=== PATIENT | male | born 1970 | race Caucasian/White ===

== ENCOUNTER 2024-04-27 18:14 | Inpatient (IN) | payer BC ==
[2024-04-27 19:17] LABS: #Basophils 0.04 10x3/uL (0.0-0.2); %Basophils 0.4 % (0.0-1.0); %Eosinophils 2.2 % (0.0-10.0); %Lymphocytes 19.3 % (21.0-51.0); %Neutrophils 72.7 % (42.0-75.0); Hematocrit 43.5 % (42.0-52.0); Hemoglobin 15.8 g/dL (14.0-18.0); Mean Corpuscular HGB CONC 36.3 g/dL (32.0-36.0); Mean Corpuscular Hemoglobin 30.4 pg (27.0-31.0); Mean Corpuscular Volume 83.8 fL (78.0-98.0); Mean Platelet Volume 9.3 fL (7.4-10.4); Platelet Count 264 10x3/uL (130-400); RBC Distribution Width 11.9 % (11.5-14.5); Red Blood Cell (RBC) Count 5.19 mill/uL (4.70-6.10)
[2024-04-27] MEDS ORDERED: Aspirin Chewable 81 MG TAB ONE (19:21)
[2024-04-27 19:40] LABS: ALT (SGPT) 23 U/L (8-55); AST (SGOT) 21 U/L (5-34); Albumin 4.3 g/dL (3.5-5.0); Alkaline Phosphatase 53 U/L (40-110); Anion Gap 15 mmol/L (10-20); BUN (Urea Nitrogen) 20 mg/dL (8.4-25.7); Bilirubin, Total 0.5 mg/dL (0.2-1.2); Calc. Creatinine Clearance 0 mL/min (70-130); Calcium 9.7 mg/dL (7.8-10.44); Carbon Dioxide 21 mmol/L (22-29); Chloride 104 mmol/L (98-107); Estimated GFR 90; Globulin 3.9 g/dL (2.4-3.5); Glucose 127 mg/dL (70-105); Potassium 4.4 mmol/L (3.5-5.1); Protein, Total 8.2 g/dL (6.0-8.3); Sodium 136 mmol/L (136-145)
[2024-04-27 19:41] LABS: Troponin I 0.073 ng/mL (< 0.028)
[2024-04-27] MEDS ORDERED: Nitroglycerin 2% Ointment 1 INCH/1 GM Packet ONE ×2 (19:55→19:58)
[2024-04-27] MEDS ORDERED: Acetaminophen 650 MG Suppository PR PRN (20:52)
[2024-04-27] MEDS ORDERED: Acetaminophen 325 MG TAB PO PRN (20:52)
[2024-04-27] MEDS ORDERED: Ondansetron PF 4 MG/2 ML Vial IVP PRN (20:52)
[2024-04-27] MEDS ORDERED: Nitroglycerin 0.4 MG TAB (25 Tab Bottle) SL PRN (20:52)
[2024-04-27] MEDS ORDERED: Ondansetron ODT 4 MG TAB PO PRN (20:52)
[2024-04-27] MEDS: Atorvastatin Calcium 40 MG TAB PO SCH (21:45)
[2024-04-27] MEDS ORDERED: Atorvastatin Calcium 40 MG TAB ONE (21:46)
[2024-04-27 21:53] VITALS: BMI 27.3
[2024-04-27 22:43] LABS: Troponin I 0.762 ng/mL (< 0.028)
[2024-04-28 05:24] LABS: #Basophils Less than 0.03 10x3/uL (0.0-0.2); %Basophils 0.2 % (0.0-1.0); %Eosinophils 2.5 % (0.0-10.0); %Lymphocytes 29.3 % (21.0-51.0); %Monocytes 6.6 % (0.0-10.0); %Neutrophils 60.9 % (42.0-75.0); Hematocrit 40.8 % (42.0-52.0); Hemoglobin 14.4 g/dL (14.0-18.0); Mean Corpuscular HGB CONC 35.3 g/dL (32.0-36.0); Mean Corpuscular Hemoglobin 29.8 pg (27.0-31.0); Mean Corpuscular Volume 84.3 fL (78.0-98.0); Mean Platelet Volume 9.7 fL (7.4-10.4); Platelet Count 254 10x3/uL (130-400); RBC Distribution Width 12.1 % (11.5-14.5); Red Blood Cell (RBC) Count 4.84 mill/uL (4.70-6.10)
[2024-04-28 05:42] LABS: Hemoglobin A1c 5.1 % (4.0-6.0)
[2024-04-28 05:59] LABS: Anion Gap 14 mmol/L (10-20); BUN (Urea Nitrogen) 16 mg/dL (8.4-25.7); Calc. Creatinine Clearance 112 mL/min (70-130); Calcium 9.2 mg/dL (7.8-10.44); Carbon Dioxide 22 mmol/L (22-29); Cardiac Risk 5.7 (Less than 4.5); Chloride 106 mmol/L (98-107); Cholesterol 234 mg/dl (< 200 Desired); Estimated GFR 103; Glucose 96 mg/dL (70-105); HDL Cholesterol 41 mg/dL (>60 Neg Risk); LDL Cholesterol, Calculated 177 mg/dL; Potassium 3.9 mmol/L (3.5-5.1); Sodium 138 mmol/L (136-145); Triglycerides 78 mg/dL (Less than 150)
[2024-04-28 06:07] LABS: Troponin I 3.512 ng/mL (< 0.028)
[2024-04-28] MEDS ORDERED: Aspirin Chewable 81 MG TAB ONE (08:29)
[2024-04-28] MEDS ORDERED: Enoxaparin 80 MG (0.8 mL) SYRINGE ONE (08:29)
[2024-04-28 08:33] LABS: Troponin I 3.797 ng/mL (< 0.028)
[2024-04-28] MEDS ORDERED: Enoxaparin 40 MG (0.4 mL) SYRINGE SC SCH (09:00)
[2024-04-28] MEDS ORDERED: Communication Order-Pharmacy FS SCH (10:15)
[2024-04-28] MEDS ORDERED: fentaNYL 50 mcg/mL 1 mL Vial ONE (10:36)
[2024-04-28] MEDS ORDERED: Nitroglycerin 50 MG/250 ML BOT 250 ML ONE (10:36)
[2024-04-28] MEDS ORDERED: Heparin 10,000 UNITS/ 10 ML VIAL ONE (10:36)
[2024-04-28] MEDS ORDERED: Verapamil 5 MG/2 ML VIAL ONE (10:36)
[2024-04-28] MEDS ORDERED: Midazolam HCl 2 mg/2 ml Vial ONE (10:36)
[2024-04-28] MEDS ORDERED: Adenosine 6 mg (2 mL) VIAL ONE (10:36)
[2024-04-28] MEDS ORDERED: Sodium Chloride 0.9% 200 ML IV PRN (11:55)
[2024-04-28] MEDS ORDERED: Acetaminophen/Codeine 30-300mg Tablet PO PRN ×2 (11:55)
[2024-04-28] MEDS ORDERED: Nitroglycerin 0.4 MG TAB (25 Tab Bottle) SL PRN (11:55)
[2024-04-28] MEDS: Enoxaparin 80 MG (0.8 mL) SYRINGE SC SCH (15:35)
[2024-04-28] MEDS: Aspirin Chewable 81 MG TAB PO SCH (15:35)
[2024-04-28] MEDS: Sodium Chloride 0.9% 1,000 ML IV SCH (15:38)
[2024-04-28 15:56] LABS: Troponin I 3.606 ng/mL (< 0.028)
[2024-04-28 17:50] LABS: Critical Call Chem Troponin I RESULT DECREASING; Troponin I 2.975 ng/mL (< 0.028)
[2024-04-28] MEDS: Colchicine 0.6 MG TAB PO SCH (22:11)
[2024-04-28] MEDS: Ibuprofen 600 MG TAB PO SCH (22:11)
[2024-04-29 01:26] LABS: Troponin I 3.364 ng/mL (< 0.028)
[2024-04-29 08:40] LABS: Critical Call Chem Troponin I RESULT DECREASING; Troponin I 2.311 ng/mL (< 0.028)
[2024-04-29] MEDS: Pantoprazole DR 40 MG TAB PO SCH (09:41)
[2024-04-29] MEDS: Colchicine 0.6 MG TAB PO SCH (09:41)
[2024-04-29 13:30] VITALS: BP 138/80; TEMP 98.1
[2024-04-30] MEDS ORDERED: FLU (Fluarix Triv) TS24-25(6MOS UP)/PF 45 MCG/0.5 ML Syringe IM ONE (09:00)
== END 2024-04-29 15:15 | disposition home or self-care (01) | DRG 287 ==
LOC: ERS 18:14 → SUATTDRO 18:14 → ERHOLD 20:52 → OBSVTOIN 04-28 08:30 → 2NO 04-28 15:16
PROVIDERS: ADMIT Family Medicine; ATTEND Family Medicine
PROC: 4A023N7 Measurement of Cardiac Sampling and Pressure, Left Heart, Percutaneous Approach (ICD-10-PCS; principal; 2024-04-28)
PROC: B2101ZZ Fluoroscopy of Single Coronary Artery using Low Osmolar Contrast (ICD-10-PCS; 2024-04-28)
PROC: B2151ZZ Fluoroscopy of Left Heart using Low Osmolar Contrast (ICD-10-PCS; 2024-04-28)
DX: I30.9 Acute pericarditis, unspecified (principal); B97.89 Other viral agents as the cause of diseases classified elsewhere; Z79.899 Other long term (current) drug therapy; Z91.011 Allergy to milk products; Z91.018 Allergy to other foods; E78.00 Pure hypercholesterolemia, unspecified; Z90.49 Acquired absence of other specified parts of digestive tract
CPT/HCPCS: 36415; 71045; 80048; 80053; 80061; 83036; 84443; 84484; 85025; 86141; 87040; 87077; 87149; 93005; 93306; 93458; 99152; C1769; C1894; J0153; J1644; J1650; J2250; J3010

== ENCOUNTER 2024-05-12 07:17 | Inpatient (IN) | payer BC ==
[2024-05-12 07:40] LABS: #Basophils Less than 0.03 10x3/uL (0.0-0.2); #Eosinophils Less than 0.03 10x3/uL (0.0-0.7); %Basophils 0.2 % (0.0-1.0); %Eosinophils 0.1 % (0.0-10.0); %Lymphocytes 10.1 % (21.0-51.0); %Monocytes 2.9 % (0.0-10.0); %Neutrophils 86.3 % (42.0-75.0); Hematocrit 44.7 % (42.0-52.0); Hemoglobin 15.7 g/dL (14.0-18.0); Mean Corpuscular HGB CONC 35.1 g/dL (32.0-36.0); Mean Corpuscular Hemoglobin 29.9 pg (27.0-31.0); Mean Corpuscular Volume 85.1 fL (78.0-98.0); Mean Platelet Volume 9.5 fL (7.4-10.4); Platelet Count 289 10x3/uL (130-400); RBC Distribution Width 11.8 % (11.5-14.5); Red Blood Cell (RBC) Count 5.25 mill/uL (4.70-6.10)
[2024-05-12] MEDS ORDERED: Aspirin Chewable 81 MG TAB ONE (07:42)
[2024-05-12] MEDS ORDERED: Nitroglycerin 0.4 MG TAB 1 EACH ONE (07:52)
[2024-05-12 08:20] LABS: ALT (SGPT) 22 U/L (8-55); AST (SGOT) 24 U/L (5-34); Albumin 4.3 g/dL (3.5-5.0); Alkaline Phosphatase 58 U/L (40-110); Anion Gap 15 mmol/L (10-20); BUN (Urea Nitrogen) 16 mg/dL (8.4-25.7); Bilirubin, Total 0.6 mg/dL (0.2-1.2); Calc. Creatinine Clearance 0 mL/min (70-130); Calcium 10.9 mg/dL (7.8-10.44); Carbon Dioxide 25 mmol/L (22-29); Chloride 99 mmol/L (98-107); Estimated GFR 102; Globulin 3.8 g/dL (2.4-3.5); Glucose 117 mg/dL (70-105); Potassium 3.9 mmol/L (3.5-5.1); Protein, Total 8.1 g/dL (6.0-8.3); Sodium 135 mmol/L (136-145)
[2024-05-12 08:30] LABS: Troponin I 1.761 ng/mL (< 0.028)
[2024-05-12] MEDS ORDERED: Morphine 2 MG/ML VIAL ONE (09:07)
[2024-05-12] MEDS ORDERED: Ketorolac Tromethamine 30 MG (1 mL) VIAL ONE (12:30)
[2024-05-12] MEDS ORDERED: Ondansetron PF 4 MG/2 ML Vial IVP PRN (13:25)
[2024-05-12] MEDS ORDERED: Ondansetron ODT 4 MG TAB PO PRN (13:25)
[2024-05-12] MEDS ORDERED: Senokot S 8.6-50 MG TAB PO PRN (13:25)
[2024-05-12 14:25] LABS: Troponin I 8.033 ng/mL (< 0.028)
[2024-05-12] MEDS ORDERED: Iopamidol-370 76% 500 ML MDV (1 ML CHARGE) ONE (15:07)
[2024-05-12 15:19] VITALS: BMI 28.1
[2024-05-12] MEDS: Ibuprofen 600 MG TAB PO SCH (15:45)
[2024-05-12] MEDS: Colchicine 0.6 MG TAB PO SCH ×2 (15:45→20:23)
[2024-05-12] MEDS: Ketorolac Tromethamine 30 MG (1 mL) VIAL IVP SCH (15:46)
[2024-05-12 18:03] LABS: Troponin I 9.896 ng/mL (< 0.028)
[2024-05-12] MEDS: Carvedilol 3.125 MG TAB PO SCH (18:44)
[2024-05-12] MEDS: Morphine 2 MG/ML VIAL SLOW IVP PRN (18:50)
[2024-05-12] MEDS: Carvedilol 6.25 MG TAB PO SCH (18:50)
[2024-05-12] MEDS: Metoprolol Tartrate 25 MG TAB PO SCH (20:23)
[2024-05-12] MEDS: Ibuprofen 200 MG TAB PO SCH (21:40)
[2024-05-13 07:59] LABS: Troponin I 23.422 ng/mL (< 0.028)
[2024-05-13] MEDS ORDERED: Carvedilol 3.125 MG TAB PO SCH (08:00)
[2024-05-13] MEDS: Carvedilol 6.25 MG TAB PO SCH (09:20)
[2024-05-13] MEDS: Pantoprazole 40 MG DR.TAB PO SCH (09:20)
[2024-05-13 13:37] LABS: Critical Call Chem Troponin I RESULT DECREASING; Troponin I 16.917 ng/mL (< 0.028)
[2024-05-13 21:03] LABS: Troponin I 12.006 ng/mL (< 0.028)
[2024-05-14 08:33] LABS: Critical Call Chem Troponin I RESULT DECREASING
[2024-05-14] MEDS: Pantoprazole 40 MG DR.TAB PO SCH (09:21)
[2024-05-14] MEDS: FLU (Fluarix Triv) TS24-25(6MOS UP)/PF 45 MCG/0.5 ML Syringe IM ONE (09:22)
[2024-05-14 12:22] VITALS: BP 122/83; TEMP 97.6
[2024-05-14 13:35] LABS: Troponin I 7.214 ng/mL (< 0.028)
== END 2024-05-14 16:02 | disposition home or self-care (01) | DRG 282 ==
LOC: ERS 07:17 → OBS 14:50 → OBSVTOIN 05-13 15:27
PROVIDERS: ADMIT Family Medicine; ATTEND Family Medicine
DX: I30.9 Acute pericarditis, unspecified (principal); I21.A1 Myocardial infarction type 2; E78.5 Hyperlipidemia, unspecified; I25.10 Atherosclerotic heart disease of native coronary artery without angina pectoris; Z90.49 Acquired absence of other specified parts of digestive tract; Z79.899 Other long term (current) drug therapy; I08.1 Rheumatic disorders of both mitral and tricuspid valves
CPT/HCPCS: 36415; 71045; 71275; 80053; 83880; 84484; 85025; 85379; 90656; 93005; 93010; 93306; 94760; 96374; 96375; 96376; G0378; J1885; J2272; Q9967

== ENCOUNTER 2024-10-28 11:24 | Observation (INO) | payer BC ==
[2024-10-28 12:25] LABS: #Basophils Less than 0.03 10x3/uL (0.0-0.2); #Eosinophils Less than 0.03 10x3/uL (0.0-0.7); #Monocytes 0.32 10x3/uL (0.11-0.59); #Neutrophils 13.65 10x3/uL (1.40-6.50); %Basophils 0.1 % (0.0-1.0); %Eosinophils 0.1 % (0.0-10.0); %Lymphocytes 6.7 % (21.0-51.0); %Monocytes 2.1 % (0.0-10.0); %Neutrophils 90.3 % (42.0-75.0); Hemoglobin 16.1 g/dL (14.0-18.0); Mean Corpuscular Hemoglobin 29.3 pg (27.0-31.0); Mean Corpuscular Volume 83.6 fL (78.0-98.0); Mean Platelet Volume 10.1 fL (7.4-10.4); Platelet Count 263 10x3/uL (130-400); RBC Distribution Width 11.9 % (11.5-14.5); White Blood Cell (WBC) Count 15.14 10x3/uL (4.8-10.8)
[2024-10-28 12:49] LABS: ALT (SGPT) 28 U/L (Less than 45); AST (SGOT) 39 U/L (11-34); Albumin 4.4 g/dL (3.1-4.5); Alkaline Phosphatase 52 U/L (40-110); Anion Gap 14 mmol/L (10-20); BUN (Urea Nitrogen) 19 mg/dL (8.4-25.7); Bilirubin, Total 0.6 mg/dL (0.3-1.2); Calc. Creatinine Clearance 0 mL/min (70-130); Calcium 9.7 mg/dL (7.8-10.44); Carbon Dioxide 25 mmol/L (22-29); Chloride 101 mmol/L (98-107); Estimated GFR 91; Globulin 3.8 g/dL (2.4-3.5); Glucose 104 mg/dL (70-105); Magnesium 1.8 mg/dL (1.6-2.6); Potassium 4.2 mmol/L (3.5-5.1); Protein, Total 8.2 g/dL (6.0-8.3); Sodium 136 mmol/L (136-145)
[2024-10-28 12:52] LABS: CRP,High Sensitivity (Inhouse) 0.04 mg/dL (< or = 0.5)
[2024-10-28 13:00] LABS: Troponin I 1.032 ng/mL (< 0.028)
[2024-10-28 14:48] VITALS: BMI 28.6
[2024-10-28] MEDS ORDERED: Electrolyte Replacement Protocol 1 EACH FS SCH (15:54)
[2024-10-28 16:02] LABS: Troponin I 1.565 ng/mL (< 0.028)
[2024-10-28] MEDS ORDERED: Senokot S 8.6-50 MG TAB PO PRN (16:09)
[2024-10-28] MEDS ORDERED: Calcium Carbonate 500 MG ChewTAB PO PRN (16:09)
[2024-10-28] MEDS ORDERED: Acetaminophen 325 MG TAB PO PRN (16:09)
[2024-10-28] MEDS: Magnesium 2 GM/50 ML(in water) 2 GM in Premix 1 BAG IVPB SCH (16:32)
[2024-10-28] MEDS ORDERED: Acetaminophen/Codeine 30-300mg Tablet PO PRN (16:36)
[2024-10-28] MEDS: Colchicine 0.6 MG TAB PO SCH (19:56)
[2024-10-28] MEDS: Pantoprazole 40 MG DR.TAB PO SCH (19:56)
[2024-10-28] MEDS: Ibuprofen 800 MG TAB PO SCH (21:46)
[2024-10-28] MEDS ORDERED: Ibuprofen 600 MG TAB PO SCH (22:00)
[2024-10-28 22:39] LABS: Troponin I 2.166 ng/mL (< 0.028)
[2024-10-29 05:55] LABS: #Basophils 0.03 10x3/uL (0.0-0.2); #Eosinophils 0.09 10x3/uL (0.0-0.7); #Monocytes 0.74 10x3/uL (0.11-0.59); %Basophils 0.2 % (0.0-1.0); %Eosinophils 0.6 % (0.0-10.0); %Lymphocytes 25.3 % (21.0-51.0); %Monocytes 5.3 % (0.0-10.0); %Neutrophils 68.2 % (42.0-75.0); Mean Corpuscular HGB CONC 34.9 g/dL (32.0-36.0); Mean Corpuscular Hemoglobin 30.1 pg (27.0-31.0); Mean Corpuscular Volume 86.3 fL (78.0-98.0); Platelet Count 248 10x3/uL (130-400); RBC Distribution Width 11.9 % (11.5-14.5); Red Blood Cell (RBC) Count 4.98 mill/uL (4.70-6.10); White Blood Cell (WBC) Count 14.09 10x3/uL (4.8-10.8)
[2024-10-29 06:26] LABS: Anion Gap 10 mmol/L (10-20); BUN (Urea Nitrogen) 18 mg/dL (8.4-25.7); Calc. Creatinine Clearance 103 mL/min (70-130); Calcium 8.6 mg/dL (7.8-10.44); Carbon Dioxide 28 mmol/L (22-29); Chloride 104 mmol/L (98-107); Estimated GFR 95; Glucose 84 mg/dL (70-105); Potassium 3.9 mmol/L (3.5-5.1); Sodium 138 mmol/L (136-145); Troponin I 1.758 ng/mL (< 0.028)
[2024-10-29 11:17] VITALS: BP 115/75; TEMP 97.6
[2024-10-29 13:10] LABS: Critical Call Chem Troponin I RESULT DECREASING; Troponin I 1.509 ng/mL (< 0.028)
== END 2024-10-29 15:55 | disposition home or self-care (01) ==
LOC: ERS 11:24 → OBS 13:42
PROVIDERS: ADMIT Internal Medicine; ATTEND Emergency Medicine
PROC: B24BZZZ Ultrasonography of Heart with Aorta (ICD-10-PCS; principal; 2024-10-29)
DX: I30.9 Acute pericarditis, unspecified (principal); I25.10 Atherosclerotic heart disease of native coronary artery without angina pectoris; E78.5 Hyperlipidemia, unspecified; E83.42 Hypomagnesemia; D72.829 Elevated white blood cell count, unspecified; Z90.49 Acquired absence of other specified parts of digestive tract; Z91.018 Allergy to other foods; Z91.011 Allergy to milk products; Z91.048 Other nonmedicinal substance allergy status; Z79.899 Other long term (current) drug therapy
CPT/HCPCS: 36415; 71045; 80048; 80053; 82550; 83735; 83880; 84484; 85025; 86141; 93005; 93306; 96374; G0378; J3475